=== PATIENT | male | born 1970 | race Caucasian/White ===

== ENCOUNTER 2017-03-10 15:40 | Emergency (ER) | payer SELFPAY ==
[~2017-03-10] VITALS: Ht 172.7 cm; Wt 116.0 kg
[2017-03-10 15:45] VITALS: Ht 172.7 cm; Wt 116.0 kg
== END 2017-03-10 19:44 | disposition left against medical advice (07) ==
LOC: E/R 15:40
DX: Z53.21 Procedure and treatment not carried out due to patient leaving prior to being seen by health care provider (principal)

== ENCOUNTER 2017-11-30 15:11 | Emergency (ER) | END 2017-11-30 18:24 | disposition left against medical advice (07) ==